=== PATIENT | female | born 1980 | race Hispanic/Latino ===

== ENCOUNTER 2019-02-24 10:03 | Observation (INO) | payer OTHER ==
[2019-02-23 09:46] LABS: Basophils % (Auto) 0.4 % (0.0-1.8); Eosinophils # (Auto) 0.2 K/mm3 (0.0-0.4); Eosinophils % (Auto) 2.7 % (0.0-4.3); Hematocrit 44.3 % (30.3-42.9); Hemoglobin 15.6 gm/dl (10.1-14.3); Mean Corpuscular HGB Conc 35 % (30-34); Mean Corpuscular Volume 92 fl (79-97); Monocytes # (Auto) 0.6 K/mm3 (0.0-0.8); Monocytes % (Auto) 8.7 % (0.0-7.3); Platelet Count 148 K/mm3 (140-440); Red Blood Count 4.82 M/mm3 (3.65-5.03); Red Cell Distribution Width 13.5 % (13.2-15.2)
--- NOTE | 2019-02-23 10:38 | Anesthesia Consultation ---
Anesthesia Consult and Med Hx Date of service: 02/24/19 - Airway Anesthetic Teeth Evaluation: Good ROM Head & Neck: Adequate Mental/Hyoid Distance: Adequate Mallampati Class: Class II Intubation Access Assessment: Good - Pulmonary Exam CTA: Yes - Cardiac Exam Cardiac Exam: RRR - Pre-Operative Health Status ASA Pre-Surgery Classification: ASA3 Proposed Anesthetic Plan: General - Pulmonary Hx Smoking: Yes Hx Asthma: Yes - Central Nervous System Hx Psychiatric Problems: Yes - Hematic Hx Anemia: Yes - Other Systems Hx Cancer: No
[~2019-02-24 10:03] MED LIST: DIPRIVAN 10 MG/ML IV ONE; LACTATED RINGERS 1,000 ML IV SCH; MARCAINE 0.5% INFILTRATI NR; NACL P/F VIAL (10 ML) INFILTRATI NR; SUBLIMAZE IV NR; SUBLIMAZE ONE; VERSED IV NR; XYLOCAINE MPF 2% ONE; ZEMURON IV ONE
[2019-02-24] MEDS ORDERED: NARCAN 0.4 MG/1 ML IV PRN (10:14)
[2019-02-24] MEDS ORDERED: SUBLIMAZE IV ONE (10:14)
[2019-02-24] MEDS ORDERED: DEMEROL IV PRN (10:14)
[2019-02-24] MEDS ORDERED: DILAUDID IV PRN (10:14)
[2019-02-24] MEDS ORDERED: SUBLIMAZE IV PRN (10:14)
[2019-02-24] MEDS ORDERED: ZOFRAN IV PRN ×2 (10:14→14:29)
[2019-02-24] MEDS ORDERED: XYLOCAINE 1% 20 mL INFILTRATI NR (10:15)
[2019-02-24] MEDS ORDERED: NEOSPORIN GU IR ONE ×2 (10:15→14:03)
[2019-02-24] MEDS ORDERED: PROVENTIL IH PRN (10:39)
[2019-02-24] MEDS ORDERED: PROVENTIL IH ONE (10:39)
--- NOTE | 2019-02-24 10:54 | Anesthesia Day of Surgery ---
Anesthesia Day of Surgery - Day of Surgery Patient Examined: Yes Patient H&P Reviewed: Yes Patient is NPO: Yes Beta Blockers: No Cardiac Clearance: No Pulmonary Clearance: No
[2019-02-24] MEDS ORDERED: NEURONTIN PO NR (11:00)
[2019-02-24] MEDS ORDERED: TYLENOL PO NR (11:00)
[2019-02-24] MEDS ORDERED: VERSED IV NR (11:00)
[2019-02-24] MEDS ORDERED: MARCAINE 0.5% INFILTRATI NR (11:00)
[2019-02-24] MEDS ORDERED: GENTAMICIN IV NR (11:12)
[2019-02-24] MEDS ORDERED: NACL 0.9% IV NR (11:12)
--- NOTE | 2019-02-24 11:15 | History and Physical Report ---
History of Present Illness Date of examination: 02/24/19 Chief complaint: Menorrhagia History of present illness: Pt is a 38yo WF LMP 12/23/2018 presented for surgical evaluation and treat ment of prolonged vaginal bleeding due to suspected adenomyosis. She complains of prolonged heavy vaginal bleeding and pelvic pain (05/04). Pelvic ultrasound showed the uterus to be enlarged measuring 11 x 8 x 7 cm with a thickened endometrium. Patient had a previous tubal ligation and does not desire future fertility. She is therefore scheduled for a Robotic-Assisted Total Hysterectomy with ovarian conservation Past History Past Medical History: asthma, thyroid disease, migraines, GERD, other (depression - not on meds) Past Surgical History: no surgical history, cholecystectomy, D&C Family/Genetic History: none Social history: no significant social history, Medications and Allergies Allergies Allergy/AdvReac Type Severity Reaction Status Date / Time Penicillins Allergy Hives Verified 02/20/19 10:19 Home Medications Medication Instructions Recorded Confirmed Last Taken Type Albuterol Sulfate [Ventolin Hfa] 2 puff IH BID 02/20/19 02/24/19 02/24/19 08:30 History Levothyroxine Sodium [Synthroid] 200 mcg PO DAILY 02/20/19 02/24/19 02/24/19 08:30 History Cetirizine HCl [Allergy Relief] 10 mg PO DAILY 02/23/19 02/24/19 02/23/19 09:00 History Citalopram [celeXA] 20 mg PO QDAY 02/23/19 02/24/19 02/23/19 09:00 History Ferrous Sulfate [Iron 325 MG] 325 mg PO DAILY 02/23/19 02/24/19 02/23/19 09:00 History Lovastatin [Altoprev] 20 mg PO HS 02/23/19 02/24/19 02/23/19 09:00 History Active Meds: Active Medications Acetaminophen (Tylenol) 650 mg PO PREOP NR Stop: 02/24/19 15:00 Last Admin: 02/24/19 11:09 Dose: 650 mg Documented by: Albuterol (Proventil) 2.5 mg IH Q4HRT PRN PRN Reason: Shortness Of Breath Last Admin: 02/24/19 11:04 Dose: 2.5 mg Documented by: Bupivacaine HCl (Marcaine 0.5%) 60 ml INFILTRATI PREOP NR Stop: 02/24/19 23:59 Fentanyl (Sublimaze) 50 mcg IV Q5MIN PRN PRN Reason: Pain , Severe (7-10) Stop: 02/24/19 23:59 Gabapentin (Neurontin) 300 mg PO PREOP NR Stop: 02/24/19 16:00 Last Admin: 02/24/19 11:08 Dose: 300 mg Documented by: Hydromorphone HCl (Dilaudid) 0.5 mg IV Q10MIN PRN PRN Reason: Pain , Severe (7-10) Stop: 02/24/19 23:59 Lactated Ringer's (Lactated Ringers) 1,000 mls @ 42 mls/hr IV DIRECT JERARDO Last Admin: 02/24/19 11:00 Dose: 42 mls/hr Documented by: Lidocaine (Xylocaine 1% 20 Ml) 10 ml INFILTRATI PREOP NR Stop: 02/24/19 23:59 Meperidine HCl (Demerol) 25 mg IV ONCE PRN PRN Reason: Shivering Stop: 02/24/19 23:59 Midazolam HCl (Versed) 2 mg IV PREOP NR Stop: 02/24/19 23:59 Naloxone HCl (Narcan 0.4 Mg/1 Ml) 0.1 mg IV Q2MIN PRN PRN Reason: Res Rate </= 8 or 02 SAT < 92% Ondansetron HCl (Zofran) 4 mg IV ONCE PRN PRN Reason: Nausea And Vomiting Review of Systems All systems: negative - Vital Signs Vital signs: Vital Signs Temp Pulse Resp BP Pulse Ox 98.1 F 66 20 117/61 96 02/23/19 09:10 02/23/19 09:10 02/23/19 09:10 02/23/19 09:10 02/23/19 09:10 Temp Pulse Resp BP Pulse Ox 97.6 F 75 20 130/82 99 02/24/19 10:35 02/24/19 10:35 02/24/19 11:09 02/24/19 10:35 02/24/19 10:35 - Physical Exam Breasts: Positive: deferred Cardiovascular: Regular rate Lungs: Positive: Clear to auscultation Abdomen: Positive: normal appearance Genitourinary (Female): Positive: normal external genitalia Vagina: Positive: normal moisture Uterus: Positive: enlarged Extremities: Positive: normal Results Result Diagrams: 02/23/19 09:15 All other labs normal. Ultrasound: report reviewed Assessment and Plan - Patient Problems (1) Menorrhagia with irregular cycle Onset Date: 02/24/19 Current Visit: Yes Status: Chronic Plan to address problem: A: Menorrhagia Dysmenorrhea Suspected adenomyosis P: Admit for a Robotic-Assisted Total Hysterectomy with Bilateral salpingectomy (2) Dysmenorrhea Onset Date: 02/24/19 Current Visit: Yes Status: Chronic (3) Adenomyosis Onset Date: 02/24/19 Current Visit: Yes Status: Suspected
[2019-02-24] MEDS ORDERED: MARCAINE 0.5% INFILTRATI ONE (11:16)
[2019-02-24] MEDS ORDERED: CLEOCIN 900 MG/50 mL 900 MG/50 ML BAG IV NR (12:00)
[2019-02-24] MEDS ORDERED: ROBINUL ONE (13:57)
[2019-02-24] MEDS ORDERED: NACL 0.9% IR ONE ×2 (14:06→14:07)
[2019-02-24] MEDS ORDERED: BLOXIVERZ ONE (14:07)
--- NOTE | 2019-02-24 14:25 | Operative Report ---
Operative Report Operative Report: Date of procedure: 02/24/2019 Pre-operative diagnosis: 1. Menorrhagia 2. Dysmenorrhea 3. Suspected margy nomyosis Post-operative diagnosis: Same Procedure name(s): 1. Robotic-Assisted Total Hysterectomy 2. 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 Procedure: After the patient's first correctly identified she was prepped and draped in the usual sterile fashion and placed in the dorsolithotomy position. The bladder was first catheterized using Chua catheter and the speculum was placed in the vagina and the anterior lip of the cervix was grasped using a single-tooth tenaculum, and the medium Vesicare cup was placed. The tenaculum and speculum was then removed from the vagina and attention was then turned to the abdomen. The skin knife was used to make a small incision approximately 5 cm above the umbilicus through which a 12 mm trocar was placed under direct visualization. After adequate amount of abdominal insufflation visualization of the pelvic organs found the uterus to be enlarged and the tubes showed evidence of previous tubal ligation bilaterally, and the ovaries were cystic bilaterally. A right and left paramedian incision was made through which the 8 mm trochars were placed under direct visualization and a 5 mm trocar was placed in the right lower quadrant. The patient was then placed in steep Trendelenburg positioning and the robot was docked on the patient's left side. After all the robotic ports were connected and adequate functioning of the robotic arms were tested the surgeon then proceeded to the console to begin the hysterectomy. First the left round ligament was grasped, cauterized and cut, the left utero- ovarian ligaments were grasped, cauterized and cut, and the left fallopian tube also grasped, cauterized and cut along the mesosalpinx, thus freeing the left ovary from the left uterine sidewall. The same procedure was performed on the right. The right round ligament was grasped, cauterized and cut, the right utero-ovarian ligaments were grasped, cauterized and cut, and the right fallopian tube also grasped, cauterized and cut along the mesosalpinx, thus freeing the right ovary from the right uterine sidewall. The ovaries were incised, spilling clear straw colored fluid. The bladder flap was taken down anteriorly and the uterine vessels were grasped, cauterized and cut bilaterally. The cardinal ligaments were sequentially grasped, cauterized and cut down to the level of the uterosacral ligaments. At this time the posterior colpotomy was performed over the Vcare cup, and the cervix was circumscribed beginning posteriorly and meeting anteriorly until the cervix was freed. The cervix and uterus was then removed through the vagina and sent to pathology. The vaginal cuff was then closed using 2-0 Vloc suture in a running fashion. Irrigation w as then performed and after good hemostasis was achieved the procedure was considered complete. The Tisseel sealant was then sprayed across the vaginal cuff site, and after excellent hemostasis was assured Interceed was placed across the vaginal cuff site. All instruments were then removed from the abdominal cavity. And each incision was closed using 0 Vicryl suture in a [id number] configuration on the fascia followed by 4-0 Monocryl suture in a subcuticular fashion on the skin. Each incision was also infiltrated using 0.5% Marcaine solution. The vaginal pack was removed. The patient tolerated the procedure well and was transported to the recovery room in stable condition.
[2019-02-24] MEDS ORDERED: NORCO 5/325 PO PRN (14:29)
[2019-02-24] MEDS ORDERED: SODIUM CHLORIDE FLUSH SYRINGE 10 ML IV PRN (14:29)
[2019-02-24] MEDS ORDERED: MILK OF MAGNESIA PO PRN (14:29)
[2019-02-24] MEDS ORDERED: TYLENOL PO PRN (14:29)
[2019-02-24] MEDS ORDERED: D5LR 1,000 ML IV SCH (15:00)
[2019-02-24] MEDS: TORADOL IV SCH ×2 (18:41→23:41)
[2019-02-24] MEDS: CLEOCIN 600 MG/50 mL 600 MG/50 ML BAG IV SCH (21:18)
[2019-02-24] MEDS: GENTAMICIN/NS 80 MG/100 ML 100 ML IV SCH (21:18)
[2019-02-24] MEDS: COLACE PO SCH (21:32)
[2019-02-24] MEDS: PERCOCET 5/325 PO PRN (21:32)
[2019-02-25] MEDS: GENTAMICIN/NS 80 MG/100 ML 100 ML IV SCH (04:44)
[2019-02-25] MEDS: CLEOCIN 600 MG/50 mL 600 MG/50 ML BAG IV SCH (04:44)
[2019-02-25] MEDS: TORADOL IV SCH ×2 (05:16→09:41)
[2019-02-25 06:13] LABS: Hematocrit 40.4 % (30.3-42.9); Hemoglobin 13.8 gm/dl (10.1-14.3)
--- NOTE | 2019-02-25 07:37 | Post Anesthesia Evaluation ---
- Post Anesthesia Evaluation Patient Participated: Yes Airway Patent: Yes Stable Respiratory Function: Yes Nausea/Vomiting: No Temp > 96.8F: Yes Pain Manageable: Yes Adequeate Hydration: Yes Anesthesia Complications: No
--- NOTE | 2019-02-25 08:58 | Progress Note ---
Assessment and Plan - Patient Problems (1) Menorrhagia with irregular cycle Onset Date: 02/24/19 Current Visit: Yes Status: Resolved (2) Dysmenorrhea Onset Date: 02/24/19 Current Visit: Yes Status: Resolved (3) Adenomyosis Onset Date: 02/24/19 Current Visit: Yes Status: Resolved (4) Status post robot-assisted surgical procedure Onset Date: 02/25/19 Current Visit: Yes Status: Resolved Plan to address problem: A: S/P RATH - POD #1 Doing well P: May go home today. Subjective - Subjective Date of service: 02/25/19 Principal diagnosis: s/p RATH - POD #1 Interval history: Pt is feeling well without complaints. She is tolerating a reg diet without nausea or vomiting, ambulating and voiding without difficulty. Patient reports: appetite normal, voiding normally, pain well controlled, f latus, ambulating normally, no dizzy ambulation, no nauseated Objective - Vital Signs Latest vital signs: Vital Signs Temp Pulse Pulse Resp BP BP Pulse Ox 02/25/19 05:36 98.4 F 67 20 101/56 96 02/24/19 23:44 99.0 F 89 20 111/50 94 02/24/19 20:57 98.6 F 76 20 110/66 96 02/24/19 16:05 98.0 F 68 68 20 141/82 94 02/24/19 15:45 74 21 147/82 95 02/24/19 15:30 73 21 135/78 95 02/24/19 15:15 98.5 F 72 20 149/83 95 02/24/19 15:00 82 20 147/82 94 02/24/19 14:55 74 24 92 02/24/19 14:45 77 24 154/87 98 02/24/19 14:35 68 25 H 147/87 97 02/24/19 14:33 24 02/24/19 14:30 74 23 146/86 96 02/24/19 14:25 86 24 145/83 96 02/24/19 14:20 86 22 143/82 95 02/24/19 14:15 97.5 F L 16 137/89 98 02/24/19 11:52 20 02/24/19 11:40 75 16 128/66 96 02/24/19 11:35 73 18 132/63 96 02/24/19 11:30 73 18 120/71 96 02/24/19 11:25 75 22 122/66 97 02/24/19 11:22 20 02/24/19 11:20 76 20 125/73 95 02/24/19 11:19 75 22 125/73 98 02/24/19 11:09 20 02/24/19 10:35 97.6 F 75 24 130/82 99 02/24/19 10:20 97.6 F 75 24 130/82 99 Intake and Output 02/24/19 02/25/19 02/25/19 22:59 06:59 14:59 Intake Total 390 360 Output Total 60 1700 Balance 330 -1340 Intake: IV 150 CLEOCIN 600 MG/50 mL 600 50 mg In 50 ml @ 100 mls/hr IV Q8H JERARDO Rx#:[id number] Garamycin/Ns 80 mg/100 ml 100 100 ml @ 200 mls/hr IV Q8H JERARDO Rx#:[id number] Oral 240 360 Output: Urine 60 1700 Indwelling Catheter 1700 Other: Total, Intake Amount 240 240 Total, Output Amount 800 Voiding Method Indwelling Catheter - Exam Abdomen: Present: normal appearance, soft Incision: Present: normal, dry, intact - Labs Labs: Laboratory Tests 02/23/19 02/23/19 02/24/19 09:15 09:15 10:40 WBC 7.0 RBC 4.82 Hgb 15.6 H Hct 44.3 H MCV 92 MCH 32 MCHC 35 H RDW 13.5 Plt Count 148 Lymph % (Auto) 29.0 [place] % (Auto) 8.7 H Eos % (Auto) 2.7 Baso % (Auto) 0.4 Lymph # 2.0 [place] # 0.6 Eos # 0.2 Baso # 0.0 Seg Neutrophils % 59.2 Seg Neutrophils # 4.2 HCG, Qual Negative Blood Type O POSITIVE Antibody Screen Negative 02/25/19 06:05 WBC RBC Hgb 13.8 Hct 40.4 MCV MCH MCHC RDW Plt Count Lymph % (Auto) [place] % (Auto) Eos % (Auto) Baso % (Auto) Lymph # [place] # Eos # Baso # Seg Neutrophils % Seg Neutrophils # HCG, Qual Blood Type Antibody Screen
--- NOTE | 2019-02-25 09:39 | Discharge Summary ---
Providers - Providers Date of Admission: 02/24/19 14:29 Date of discharge: 02/25/19 Attending physician: SAUMYA MUHAMMAD Primary care physician: RORO BUSBY CNM Hospitalization Reason for admission: other (Menorrhagia; Dysmenorrhea; Suspected adenomyosis) Procedure: other (Robotic Assisted Total Hysterectomy with Bilateral salpingectomy) Episiotomy: none Incision: normal, dry, intact Other procedures: none complications: none Discharge diagnosis: other (s/p RATH) Hospital course: Pt is a 38yo WF LMP 12/23/2018 who presented for surgical evaluation and treatment of prolonged vaginal bleeding due to suspected adenomyosis. She complained of prolonged heavy vaginal bleeding and pelvic pain (05/04). Pelvic ultrasound showed the uterus to be enlarged measuring 11 x 8 x 7 cm with a t hickened endometrium. She had a previous tubal ligation and did not desire future fertility. She therefore underwent an uncomplicated Robotic-Assisted Total Hysterectomy with Bilateral salpingectomy, and by POD #1 she was tolerating a reg diet without nausea or vomiting, ambulating and voiding without difficulty. She was therefore discharged to home on POD #1 in stable condition. Condition at discharge: Good Disposition: DC-01 TO HOME OR SELFCARE - Discharge Diagnoses (1) Menorrhagia with irregular cycle Status: Resolved (2) Dysmenorrhea Status: Resolved (3) Adenomyosis Status: Resolved Plan - Discharge Medications Prescriptions: Ibuprofen [Motrin] 800 mg PO Q8HR PRN #30 tablet PRN Reason: Pain, Mild (1-3) oxyCODONE /ACETAMINOPHEN [Percocet 5/325 mg] 1 tab PO Q6H PRN #30 tablet PRN Reason: Pain, Moderate (4-6) - Provider Discharge Summary Activity: routine, no sex for 6 weeks, no heavy lifting 4 weeks, no strenuous exercise Diet: routine Instructions: routine Additional instructions: [] Smoking cessation referral if applicable(refer to patient education folder for contact #) [] Refer to [facility] Booklet Call your doctor immediately for: * Fever > 100.5 * Heavy vaginal bleeding ( >1 pad per hour) * Severe persistent headache * Shortness of breath * Reddened, hot, painful area to leg or breast * Drainage or odor from incision. * Keep incision clean and dry at all times and follow doctor's instructions regarding bathing/showering - Follow up plan Follow up: RORO BUSBY CNM [Primary Care Provider] - 14 Days SAUMYA MUHAMMAD MD [Staff Physician] - 14 Days
[2019-02-25] MEDS: COLACE PO SCH (09:41)
[2019-02-25] MEDS: PERCOCET 5/325 PO PRN (09:41)
[2019-02-25 13:18] VITALS: BP 110/60
== END 2019-02-25 11:45 | disposition home or self-care (01) ==
LOC: OR 10:03 → OB 14:29
PROVIDERS: ADMIT Obstetrics & Gynecology; ATTEND Obstetrics & Gynecology
DX: N94.6 Dysmenorrhea, unspecified (principal); N92.1 Excessive and frequent menstruation with irregular cycle; N80.0 Endometriosis of uterus; J45.909 Unspecified asthma, uncomplicated; G43.909 Migraine, unspecified, not intractable, without status migrainosus; K21.9 Gastro-esophageal reflux disease without esophagitis; F32.9 Major depressive disorder, single episode, unspecified; Z98.890 Other specified postprocedural states; Z90.49 Acquired absence of other specified parts of digestive tract; Z79.899 Other long term (current) drug therapy
CPT/HCPCS: 36415; 58552; 64450; 84703; 85014; 85018; 85025; 86850; 86900; 86901; 88307; 96365; 96366; 96368; 96375; 96376; A4217; C1765; C9250; G0378; J1170; J1580; J1885; J2175; J2250; J2704; J2710; J3010; J7120; J7121; S2900; 88302